=== PATIENT | female | born 1970 | race Caucasian/White ===

== ENCOUNTER 2022-02-25 12:58 | Inpatient (IN) ==
[2022-02-25] MEDS ORDERED: IOPAMIDOL 100 ML BOTTLE IV ONE (12:59)
--- NOTE | 2022-02-25 13:09 | Emergency Department Note ---
Weakness HPI <Ezekiel Sutton DAYNA Morris - Last Filed: 02/25/22 18:32> General Chief complaint: Weakness Stated complaint: Weakness Time Seen by Provider: 02/25/22 13:02 Source: patient Mode of arrival: ambulatory Limitations: altered mental status History of Present Illness HPI Narrative: Narrative: Patient is a 51-year-old female with past medical history of restless leg syndrome and uncontrolled type 2 diabetes recently saw her primary care provider on February 19, 2022. Patient has been treated for restless leg syndrome and periodic limb movements with Requip and has recently been prescribed rotigotine (Neupro) 4mg/24 hr patch. Patient was also recently started on Jardiance 25 mg daily after seeing her PCP for management of her diabetes. Patient went to [facility] reporting feeling weak, confused, and disoriented. She recently was started on rotigotine (Neupro) 4 mg / 24-hour patch. After she went to [facility] today she was advised to come to the emergency department for further work-up as she is continuing to be disoriented and confused. Patient's reports that she has not had any fevers, cough, chills, abdominal pain, diarrhea, vomiting, taken any Wing substances or drinks alcohol on a routine basis. He indicates last well known normal was 4 days ago. She slowly started becoming more weak, confused, disoriented over time. Related Data Home Medications Medication Instructions Recorded Confirmed clonazepam 0.5 mg tablet 0.5 mg PO QDAY PRN Anxiety 02/01/22 02/25/22 dapagliflozin 10 mg tablet 1 tab PO QDAY 02/25/22 02/25/22 ([facility]) gabapentin 300 mg capsule 600 mg PO BID@02/25/22 02/25/22 metformin 1,000 mg tablet 1,000 mg PO BIDCC 02/25/22 02/25/22 Previous Rx's Medication Instructions Recorded estradiol 1 mg tablet 1 mg PO QDAY #90 tabs 02/19/22 semaglutide 2 mg/dose (8 mg/3 mL) 2 mg (0.75 mL) subcut QWEEK #3 mL 02/19/22 subcutaneous pen injector venlafaxine 150 mg 150 mg PO QDAY #90 caps 02/19/22 capsule,extended release 24 hr Allergies Allergy/AdvReac Type Severity Reaction Status Date / Time codeine Allergy Mild Unknown Verified 02/25/22 17:50 Review of Systems <DAYNA Marroquin - Last Filed: 02/25/22 18:32> ROS ROS Narrative: Narrative: PFSH <DAYNA Marroquin - Last Filed: 02/25/22 18:32> Narrative Patient History Narrative: Narrative: Medical/Surgical/Family History All Active Problems (Updated 02/25/22 @ 18:28 by DAYNA Marroquin) DKA (diabetic ketoacidosis) (Acute) Metabolic acidosis (Acute) Menopausal and postmenopausal disorder (Chronic) Type 2 diabetes mellitus (Chronic) Restless legs (Chronic) PLMD (periodic limb movement disorder) (Chronic) Medical History (Updated 02/25/22 @ 18:28 by DAYNA Marroquin) Menopausal and postmenopausal disorder PLMD (periodic limb movement disorder) Restless legs Type 2 diabetes mellitus Surgical History History of cholecystectomy History of robot-assisted laparoscopic hysterectomy (~04/2018) History of tubal ligation which was then reversed and repeated in 2015 but had complications during the repeat tubal Family History Family/Other Type 2 diabetes mellitus Social History Smoking Status: Never smoker Alcohol Intake Frequency: does not drink Substance Use: does not use Exam <DAYNA Marroquin - Last Filed: 02/25/22 18:32> Narrative Narrative: Narrative: General Limitations: altered mental status General appearance: Present lethargic Head Head: Present atraumatic, normocephalic and normal inspection Eye Eye: Present normal appearance, PERRL and EOMI; Absent scleral icterus or nystagmus ENT ENT: Present mucous membranes dry Neck Neck: Present normal inspection and full ROM; Absent tenderness, meningismus or lymphadenopathy Chest Chest: Present normal inspection, symmetric chest wall rise and tenderness Respiratory Respiratory: Present normal lung sounds bilaterally; Absent respiratory distress, rales/crackles, wheezes, stridor, accessory muscle use or prolonged expiratory phase Cardiovascular Cardiovascular: Present regular rate, normal rhythm and normal heart sounds; Absent systolic murmur or diastolic murmur Adbominal Abdominal: Present soft, tenderness (Moderate diffuse abdominal tenderness with palpation.) and normal bowel sounds; Absent distention Extremities Extremities: Present normal inspection, full ROM and normal capillary refill; Absent pedal edema or pretibial edema Back Back: Present normal inspection Expanded Neurological Patient oriented to: Absent person, place or time Speech: Present slurred CRANIAL NERVES: EOM function (II, III, IV, ): Normal, facial sensation (V): Normal, facial palsy (VII): Normal, gag reflex (IX): Normal, spinal accessory function (XI): Normal and tongue deviation (XII): Normal Motor strength - LUE: 4/5 Motor strength - RUE: 4/5 Motor strength - LLE: 4/5 Motor strength - RLE: 4/5 SENSORY EXAM UPPER EXTREMITY: Normal: light touch SENSORY EXAM LOWER EXTREMITY: Normal: light touch Coma Scale Eye Opening: To Voice Coma Scale Motor Response: Obeys Commands Coma Scale Verbal Response: Confused Coma Scale Total: 13 Skin Skin: Present warm (WNL), dry and normal color <Elijah Gallagher DO - Last Filed: 02/25/22 18:37> Expanded Neurological Coma Scale Total: 13 Course <DAYNA Marroquin - Last Filed: 02/25/22 18:32> Vital Signs Vital signs: Vital Signs Temperature 36.5 C 02/25/22 12:58 Pulse Rate 113 H 02/25/22 12:58 Respiratory Rate 18 02/25/22 12:58 Blood Pressure 151/89 02/25/22 12:58 Pulse Oximetry (%) 99 02/25/22 12:58 Oxygen Delivery Method 02/25/22 12:58 Temperature 36.5 C 02/25/22 12:58 Pulse Rate 89 02/25/22 18:16 Respiratory Rate 19 02/25/22 18:16 Blood Pressure 95/56 02/25/22 18:00 Pulse Oximetry (%) 98 02/25/22 18:16 Oxygen Delivery Method 02/25/22 18:00 <Elijah Gallagher DO - Last Filed: 02/25/22 18:37> Vital Signs Vital signs: Vital Signs Temperature 36.5 C 02/25/22 12:58 Pulse Rate 113 H 02/25/22 12:58 Respiratory Rate 18 02/25/22 12:58 Blood Pressure 151/89 02/25/22 12:58 Pulse Oximetry (%) 99 02/25/22 12:58 Oxygen Delivery Method 02/25/22 12:58 Temperature 36.5 C 02/25/22 12:58 Pulse Rate 89 02/25/22 18:16 Respiratory Rate 19 02/25/22 18:16 Blood Pressure 95/56 02/25/22 18:00 Pulse Oximetry (%) 98 02/25/22 18:16 Oxygen Delivery Method 02/25/22 18:00 [facility] <Ezekiel MorrisDAYNA - Last Filed: 02/25/22 18:32> [facility] Narrative Medical decision making narrative: Narrative: Patient is a 51-year-old female who came into the emergency department today with altered mental status after being seen at the urgent care and was advised to go to the emergency department. Began work-up with the patient today including labs, 1 view chest x-ray, Noncontrast head CT, and did order a CT abdomen pelvis with contrast given the altered mental status and her abdominal pain she was experiencing. Patient's chest x-ray today is normal. Noncontrast head CT is read by radiologist as normal. Patient had recently started a new medication for re stless legs rotigotine (Neupro) and the patch was removed today. Poison Control Center was contacted and they recommended to have the patch removed and half- life is 5 to 7 hours with most improvement showing improvement with the sedation effect after 10 to 12 hours. 4 mg dose is higher end of dosing and typically patients are started at 1 mg dose of the medication and slowly increased with the dose. The VBG shows metabolic acidosis. She has normal blood sugar level with high ketones and had recently started on SGLT2 inhibitor 6 days ago. Clinical impression of euglycemic diabetic ketoacidosis which can occur with the utilizing SGLT2 inhibitor medications. Patient was given 1 L fluid bolus upon arrival to the emergency department and a second IV was administered and started a second liter NS bolus. Patient received a noncontrast head CT today and this is normal. Patient sodium 136, glucose 195, anion gap is 20. CO2 is 9.0, potassium 5.4, magnesium 2.6, ammonia 21, [id number] troponin is negative. Alcohol negative today. Patient is receiving IV fluids and proceeded with albuterol SVN for the hyperkalemia. Patient was seen by myself as well as along with Dr. Melara today. Patient's work-up today is consistent with euglycemic DKA most likely related to starting the SGLT2 inhibitor. Insulin drip was started as well as infusion of D5 IV. Dr. Melara was able to speak with hospitalist today, Dr. Weeks at [facility]. He agrees to accept patient for hospital admission for the severe metabolic acidosis likely secondary to DKA after starting SGLT2 inh ibitor. Lab Data Result diagrams: 02/25/22 13:24 02/25/22 13:24 Labs: Lab Results 02/25/22 02/25/22 02/25/22 Range/Units 13:24 13:24 13:24 WBC 10.6 (4.5-11.0) K/mcL RBC 5.82 H (3.59-5.38) M/mcL Hgb 17.6 H (11.2-15.7) g/dL Hct 54.5 H (34.1-44.9) % POC Hct (36-48) MCV 93.6 (80.0-100.0) fL MCH 30.2 (26.0-34.0) pg MCHC 32.3 (31.0-36.0) g/dL RDW 12.3 (11.5-14.5) % Plt Count 289 (140-440) K/mcL MPV 10.4 (8.8-12.5) fL Immature Gran % (Auto) 2.5 H (0.0-0.5) % Neut % (Auto) 83.8 H (38.0-78.0) % Lymph % (Auto) 10.4 L (15.5-49.0) % Hale % (Auto) 3.0 (1.0-12.0) % Eos % (Auto) 0 (0.0-7.0) % Baso % (Auto) 0.3 (0.0-2.0) % Lymph # (Auto) 1.10 L (1.50-4.80) K/mcL Hale # (Auto) 0.32 (0.10-0.90) K/mcL Eos # (Auto) 0 (0.00-0.70) K/mcL Baso # (Auto) 0.03 (0.00-0.30) K/mcL Immature Gran # 0.27 H (0.00-0.05) K/mcl Absolute Neutrophils 8.89 H (1.80-8.00) K/mcL POC VBG pH (7.32-7.42) POC VBG pCO2 at Temp (41-51) POC VBG pO2 (25-40) POC VBG HCO3 (24-28) POC VBG Total CO2 (25-29) POC Venous O2 Sat (40-70) POC VBG Base Excess (-2-2) VBG Lactic Acid (0.5-2) POC Sodium (133-145) Sodium (133-145) mmol/L POC Potassium (3.3-5.1) Potassium (3.3-5.1) mmol/L POC Chloride (96-108) Chloride (96-108) mmol/L Carbon Dioxide (22-30) mmol/L POC Total CO2 (22-30) Anion Gap (8.0-16.0) POC BUN (6-20) BUN (6-20) mg/dL Creatinine (0.6-1.1) mg/dL POC Creatinine (0.6-1.2) GFR Calculation Glucose (70-105) mg/dL POC Glucose (70-105) Osmolality (280-300) mOSM/kg Calcium (8.6-10.4) mg/dL POC WB Ioniz Calcium (1.16-1.32) Magnesium (1.6-2.5) mg/dL Total Bilirubin (0.1-1.0) mg/dL AST (<32) U/L ALT (<40) U/L Alkaline Phosphatase (39-117) U/L Ammonia 21 (11-51) umol/L Total Protein (5.9-8.4) gm/dL Albumin (3.2-5.2) gm/dL Globulin (2.2-3.7) gm/dL Albumin/Globulin Ratio (1.0-2.3) Beta-Hydroxybutyrate (<0.27) mmol/L Salicylates mg/dL Urine Opiates Screen Ur Opiates Confirm Ur Oxycodone Screen U Oxycod/Oxymor Confirm Urine Methadone Screen Ur Methadone Confirm Acetaminophen ug/mL Ur Barbiturates Screen Ur Barbiturate Confirm Ur Phencyclidine Scrn Urine PCP Confirm Ur Amphetamines Screen U Amphetamines Confirm U Benzodiazepines Scrn Ur Benzodiazepine, Qnt Urine Cocaine Screen Urine Cocaine Confirm U Marijuana (THC) Screen Ethyl Alcohol mg/dL < 10.0 mg/dL Ethyl Alcohol g/dL < 0.010 (<0.010) gm/dL POC Troponin I (0.00-0.08) 02/25/22 02/25/22 02/25/22 Range/Units 13:24 13:24 13:24 WBC (4.5-11.0) K/mcL RBC (3.59-5.38) M/mcL Hgb (11.2-15.7) g/dL Hct (34.1-44.9) % POC Hct (36-48) MCV (80.0-100.0) fL MCH (26.0-34.0) pg MCHC (31.0-36.0) g/dL RDW (11.5-14.5) % Plt Count (140-440) K/mcL MPV (8.8-12.5) fL Immature Gran % (Auto) (0.0-0.5) % Neut % (Auto) (38.0-78.0) % Lymph % (Auto) (15.5-49.0) % Hale % (Auto) (1.0-12.0) % Eos % (Auto) (0.0-7.0) % Baso % (Auto) (0.0-2.0) % Lymph # (Auto) (1.50-4.80) K/mcL Hale # (Auto) (0.10-0.90) K/mcL Eos # (Auto) (0.00-0.70) K/mcL Baso # (Auto) (0.00-0.30) K/mcL Immature Gran # (0.00-0.05) K/mcl Absolute Neutrophils (1.80-8.00) K/mcL POC VBG pH (7.32-7.42) POC VBG pCO2 at Temp (41-51) POC VBG pO2 (25-40) POC VBG HCO3 (24-28) POC VBG Total CO2 (25-29) POC Venous O2 Sat (40-70) POC VBG Base Excess (-2-2) VBG Lactic Acid (0.5-2) POC Sodium (133-145) Sodium 134 (133-145) mmol/L POC Potassium (3.3-5.1) Potassium 5.7 H (3.3-5.1) mmol/L POC Chloride (96-108) Chloride 98 (96-108) mmol/L Carbon Dioxide 4 L* (22-30) mmol/L POC Total CO2 (22-30) Anion Gap 32.0 H (8.0-16.0) POC BUN (6-20) BUN 18 (6-20) mg/dL Creatinine 1.2 H (0.6-1.1) mg/dL POC Creatinine (0.6-1.2) GFR Calculation 52 Glucose 197 H (70-105) mg/dL POC Glucose (70-105) Osmolality 311 H (280-300) mOSM/kg Calcium 10.1 (8.6-10.4) mg/dL POC WB Ioniz Calcium (1.16-1.32) Magnesium (1.6-2.5) mg/dL Total Bilirubin 0.2 (0.1-1.0) mg/dL AST 52 H (<32) U/L ALT 71 H (<40) U/L Alkaline Phosphatase 130 H (39-117) U/L Ammonia (11-51) umol/L Total Protein 8.0 (5.9-8.4) gm/dL Albumin 5.3 H (3.2-5.2) gm/dL Globulin 2.7 (2.2-3.7) gm/dL Albumin/Globulin Ratio 2.0 (1.0-2.3) Beta-Hydroxybutyrate 7.92 H (<0.27) mmol/L Salicylates < 0.3 mg/dL Urine Opiates Screen Ur Opiates Confirm Ur Oxycodone Screen U Oxycod/Oxymor Confirm Urine Methadone Screen Ur Methadone Confirm Acetaminophen < 5.0 ug/mL Ur Barbiturates Screen Ur Barbiturate Confirm Ur Phencyclidine Scrn Urine PCP Confirm Ur Amphetamines Screen U Amphetamines Confirm U Benzodiazepines Scrn Ur Benzodiazepine, Qnt Urine Cocaine Screen Urine Cocaine Confirm U Marijuana (THC) Screen Ethyl Alcohol mg/dL mg/dL Ethyl Alcohol g/dL (<0.010) gm/dL POC Troponin I (0.00-0.08) 02/25/22 02/25/22 02/25/22 Range/Units 13:25 13:31 13:34 WBC (4.5-11.0) K/mcL RBC (3.59-5.38) M/mcL Hgb (11.2-15.7) g/dL Hct (34.1-44.9) % POC Hct 57.0 H (36-48) MCV (80.0-100.0) fL MCH (26.0-34.0) pg MCHC (31.0-36.0) g/dL RDW (11.5-14.5) % Plt Count (140-440) K/mcL MPV (8.8-12.5) fL Immature Gran % (Auto) (0.0-0.5) % Neut % (Auto) (38.0-78.0) % Lymph % (Auto) (15.5-49.0) % Hale % (Auto) (1.0-12.0) % Eos % (Auto) (0.0-7.0) % Baso % (Auto) (0.0-2.0) % Lymph # (Auto) (1.50-4.80) K/mcL Hale # (Auto) (0.10-0.90) K/mcL Eos # (Auto) (0.00-0.70) K/mcL Baso # (Auto) (0.00-0.30) K/mcL Immature Gran # (0.00-0.05) K/mcl Absolute Neutrophils (1.80-8.00) K/mcL POC VBG pH 7.02 L* (7.32-7.42) POC VBG pCO2 at Temp 24.0 L (41-51) POC VBG pO2 32 (25-40) POC VBG HCO3 6.2 L* (24-28) POC VBG Total CO2 7.0 L (25-29) POC Venous O2 Sat 38.0 L (40-70) POC VBG Base Excess -25.0 L (-2-2) VBG Lactic Acid 2.1 H (0.5-2) POC Sodium 136 (133-145) Sodium (133-145) mmol/L POC Potassium 5.4 H (3.3-5.1) Potassium (3.3-5.1) mmol/L POC Chloride 113 H (96-108) Chloride (96-108) mmol/L Carbon Dioxide (22-30) mmol/L POC Total CO2 9.0 L* (22-30) Anion Gap (8.0-16.0) POC BUN 21 H (6-20) BUN (6-20) mg/dL Creatinine (0.6-1.1) mg/dL POC Creatinine 0.8 (0.6-1.2) GFR Calculation Glucose (70-105) mg/dL POC Glucose 195 H (70-105) Osmolality (280-300) mOSM/kg Calcium (8.6-10.4) mg/dL POC WB Ioniz Calcium 1.30 (1.16-1.32) Magnesium 2.6 H (1.6-2.5) mg/dL Total Bilirubin (0.1-1.0) mg/dL AST (<32) U/L ALT (<40) U/L Alkaline Phosphatase (39-117) U/L Ammonia (11-51) umol/L Total Protein (5.9-8.4) gm/dL Albumin (3.2-5.2) gm/dL Globulin (2.2-3.7) gm/dL Albumin/Globulin Ratio (1.0-2.3) Beta-Hydroxybutyrate (<0.27) mmol/L Salicylates mg/dL Urine Opiates Screen Ur Opiates Confirm Ur Oxycodone Screen U Oxycod/Oxymor Confirm Urine Methadone Screen Ur Methadone Confirm Acetaminophen ug/mL Ur Barbiturates Screen Ur Barbiturate Confirm Ur Phencyclidine Scrn Urine PCP Confirm Ur Amphetamines Screen U Amphetamines Confirm U Benzodiazepines Scrn Ur Benzodiazepine, Qnt Urine Cocaine Screen Urine Cocaine Confirm U Marijuana (THC) Screen Ethyl Alcohol mg/dL mg/dL Ethyl Alcohol g/dL (<0.010) gm/dL POC Troponin I (0.00-0.08) 02/25/22 02/25/22 02/25/22 Range/Units 13:36 15:53 17:09 WBC (4.5-11.0) K/mcL RBC (3.59-5.38) M/mcL Hgb (11.2-15.7) g/dL Hct (34.1-44.9) % POC Hct (36-48) MCV (80.0-100.0) fL MCH (26.0-34.0) pg MCHC (31.0-36.0) g/dL RDW (11.5-14.5) % Plt Count (140-440) K/mcL MPV (8.8-12.5) fL Immature Gran % (Auto) (0.0-0.5) % Neut % (Auto) (38.0-78.0) % Lymph % (Auto) (15.5-49.0) % Hale % (Auto) (1.0-12.0) % Eos % (Auto) (0.0-7.0) % Baso % (Auto) (0.0-2.0) % Lymph # (Auto) (1.50-4.80) K/mcL Hale # (Auto) (0.10-0.90) K/mcL Eos # (Auto) (0.00-0.70) K/mcL Baso # (Auto) (0.00-0.30) K/mcL Immature Gran # (0.00-0.05) K/mcl Absolute Neutrophils (1.80-8.00) K/mcL POC VBG pH (7.32-7.42) POC VBG pCO2 at Temp (41-51) POC VBG pO2 (25-40) POC VBG HCO3 (24-28) POC VBG Total CO2 (25-29) POC Venous O2 Sat (40-70) POC VBG Base Excess (-2-2) VBG Lactic Acid 2.2 H (0.5-2) POC Sodium (133-145) Sodium (133-145) mmol/L POC Potassium (3.3-5.1) Potassium (3.3-5.1) mmol/L POC Chloride (96-108) Chloride (96-108) mmol/L Carbon Dioxide (22-30) mmol/L POC Total CO2 (22-30) Anion Gap (8.0-16.0) POC BUN (6-20) BUN (6-20) mg/dL Creatinine (0.6-1.1) mg/dL POC Creatinine (0.6-1.2) GFR Calculation Glucose (70-105) mg/dL POC Glucose (70-105) Osmolality (280-300) mOSM/kg Calcium (8.6-10.4) mg/dL POC WB Ioniz Calcium (1.16-1.32) Magnesium (1.6-2.5) mg/dL Total Bilirubin (0.1-1.0) mg/dL AST (<32) U/L ALT (<40) U/L Alkaline Phosphatase (39-117) U/L Ammonia (11-51) umol/L Total Protein (5.9-8.4) gm/dL Albumin (3.2-5.2) gm/dL Globulin (2.2-3.7) gm/dL Albumin/Globulin Ratio (1.0-2.3) Beta-Hydroxybutyrate (<0.27) mmol/L Salicylates mg/dL Urine Opiates Screen None detected Ur Opiates Confirm TNP Ur Oxycodone Screen None detected U Oxycod/Oxymor Confirm TNP Urine Methadone Screen None detected Ur Methadone Confirm TNP Acetaminophen ug/mL Ur Barbiturates Screen None detected Ur Barbiturate Confirm TNP Ur Phencyclidine Scrn None detected Urine PCP Confirm TNP Ur Amphetamines Screen None detected U Amphetamines Confirm TNP U Benzodiazepines Scrn None detected Ur Benzodiazepine, Qnt TNP Urine Cocaine Screen None detected Urine Cocaine Confirm TNP U Marijuana (THC) Screen Suspect positive A Ethyl Alcohol mg/dL mg/dL Ethyl Alcohol g/dL (<0.010) gm/dL POC Troponin I < 0.02 (0.00-0.08) Radiology Data Radiology results reviewed: Yes I reviewed the patient's radiology results. Radiology results narrative: Ordering Physician:Ezekiel Morris Date of Service:02/25/22 Procedure(s):CT head/brain wo [facility] CLINICAL INFORMATION: Weakness and disorientation COMPARISON: None. TECHNIQUE: 2.5 mm helical slices were obtained in the skull base to vertex. Following reconstruction, axial reformatted images were reviewed at bone and parenchymal windows. The exam was performed using radiation dose optimization techniques including, but not limited to, automated exposure control, adjustment of the mA and/or kV according to patient size and use of iterative reconstruction technique. FINDINGS: The ventricles, sulci, fissures, and cisterns are normal in size and configuration. No extra-axial fluid collections are identified. The cerebrum, brainstem and cerebellum are unremarkable. There is no evidence of hemorrhage, mass effect, or edema. Bone windows show no osseous abnormality. IMPRESSION: Normal head CT without contrast. Interpreted and Authenticated by: Travon Collier 02/25/22 Ordering Physician:Ezekiel Morris Date of Service:02/25/22 Procedure(s):CT abdomen pelvis w con CLINICAL INFORMATION: Abdominal pain COMPARISON: None. TECHNIQUE: Following enteric contrast, 80 cc of Isovue-370 were injected intravenously, and 60 seconds later, 0.625 mm helical slices were obtained from the mid heart through the subtrochanteric regions. Following reconstruction, 2.5 mm sagittal, coronal and axial reformatted images were processed and reviewed at bone, lung and soft tissue windows. Five minutes later, 0.625 mm helical slices were obtained from the mid heart through the kidneys and viewed at soft tissue windows.The exam was performed using radiation dose optimization techniques including, but not limited to, automated exposure control, adjustment of the mA and/or kV according to patient size and use of iterative reconstruction technique. FINDINGS: The lung bases are clear. No effusions. The visualized heart is grossly normal. Abdominal images show moderate fatty change within the liver without focal hepatic lesion. The gallbladder is surgically absent. The common bile duct is mildly dilated-8 mm with smooth tapering near the ampullary region. Pancreatic duct is also mildly dilated with smooth tapering near the ampullary region. Findings are compatible with post cholecystectomy state. Pancreatic parenchyma is normal. Both kidneys, adrenal glands, spleen and aorta including aortic branches are normal in size configuration and attenuation without focal lesion. There is no free air, free fluid or adenopathy Pelvic images show hysterectomy/ oophorectomy changes. Urinary bladder is normal. Multiple sigmoid diverticula appreciated but no evidence of diverticulitis. The remaining colon, medial pericecal appendix, small bowel are unremarkable. There is mild mucosal enhancement of the gastric antrum and pylorus which could indicate mild gastritis. Bone windows show no osseous abnormality. IMPRESSION: Mild mucosal enhancement of the distal gastric antrum pylorus which is suggestive, but not diagnostic, of gastritis. Sigmoid diverticulosis, but no evidence of diverticulitis. Moderate fatty change within the liver. Interpreted and Authenticated by: Travon Collier 02/25/22 <Elijah Gallagher DO - Last Filed: 02/25/22 18:37> Lab Data Labs: Lab Results 02/25/22 02/25/22 02/25/22 Range/Units 13:24 13:24 13:24 WBC 10.6 (4.5-11.0) K/mcL RBC 5.82 H (3.59-5.38) M/mcL Hgb 17.6 H (11.2-15.7) g/dL Hct 54.5 H (34.1-44.9) % POC Hct (36-48) MCV 93.6 (80.0-100.0) fL MCH 30.2 (26.0-34.0) pg MCHC 32.3 (31.0-36.0) g/dL RDW 12.3 (11.5-14.5) % Plt Count 289 (140-440) K/mcL MPV 10.4 (8.8-12.5) fL Immature Gran % (Auto) 2.5 H (0.0-0.5) % Neut % (Auto) 83.8 H (38.0-78.0) % Lymph % (Auto) 10.4 L (15.5-49.0) % Hale % (Auto) 3.0 (1.0-12.0) % Eos % (Auto) 0 (0.0-7.0) % Baso % (Auto) 0.3 (0.0-2.0) % Lymph # (Auto) 1.10 L (1.50-4.80) K/mcL Hale # (Auto) 0.32 (0.10-0.90) K/mcL Eos # (Auto) 0 (0.00-0.70) K/mcL Baso # (Auto) 0.03 (0.00-0.30) K/mcL Immature Gran # 0.27 H (0.00-0.05) K/mcl Absolute Neutrophils 8.89 H (1.80-8.00) K/mcL POC VBG pH (7.32-7.42) POC VBG pCO2 at Temp (41-51) POC VBG pO2 (25-40) POC VBG HCO3 (24-28) POC VBG Total CO2 (25-29) POC Venous O2 Sat (40-70) POC VBG Base Excess (-2-2) VBG Lactic Acid (0.5-2) POC Sodium (133-145) Sodium (133-145) mmol/L POC Potassium (3.3-5.1) Potassium (3.3-5.1) mmol/L POC Chloride (96-108) Chloride (96-108) mmol/L Carbon Dioxide (22-30) mmol/L POC Total CO2 (22-30) Anion Gap (8.0-16.0) POC BUN (6-20) BUN (6-20) mg/dL Creatinine (0.6-1.1) mg/dL POC Creatinine (0.6-1.2) GFR Calculation Glucose (70-105) mg/dL POC Glucose (70-105) Osmolality (280-300) mOSM/kg Calcium (8.6-10.4) mg/dL POC WB Ioniz Calcium (1.16-1.32) Magnesium (1.6-2.5) mg/dL Total Bilirubin (0.1-1.0) mg/dL AST (<32) U/L ALT (<40) U/L Alkaline Phosphatase (39-117) U/L Ammonia 21 (11-51) umol/L Total Protein (5.9-8.4) gm/dL Albumin (3.2-5.2) gm/dL Globulin (2.2-3.7) gm/dL Albumin/Globulin Ratio (1.0-2.3) Beta-Hydroxybutyrate (<0.27) mmol/L Salicylates mg/dL Urine Opiates Screen Ur Opiates Confirm Ur Oxycodone Screen U Oxycod/Oxymor Confirm Urine Methadone Screen Ur Methadone Confirm Acetaminophen ug/mL Ur Barbiturates Screen Ur Barbiturate Confirm Ur Phencyclidine Scrn Urine PCP Confirm Ur Amphetamines Screen U Amphetamines Confirm U Benzodiazepines Scrn Ur Benzodiazepine, Qnt Urine Cocaine Screen Urine Cocaine Confirm U Marijuana (THC) Screen Ethyl Alcohol mg/dL < 10.0 mg/dL Ethyl Alcohol g/dL < 0.010 (<0.010) gm/dL POC Troponin I (0.00-0.08) 02/25/22 02/25/22 02/25/22 Range/Units 13:24 13:24 13:24 WBC (4.5-11.0) K/mcL RBC (3.59-5.38) M/mcL Hgb (11.2-15.7) g/dL Hct (34.1-44.9) % POC Hct (36-48) MCV (80.0-100.0) fL MCH (26.0-34.0) pg MCHC (31.0-36.0) g/dL RDW (11.5-14.5) % Plt Count (140-440) K/mcL MPV (8.8-12.5) fL Immature Gran % (Auto) (0.0-0.5) % Neut % (Auto) (38.0-78.0) % Lymph % (Auto) (15.5-49.0) % Hale % (Auto) (1.0-12.0) % Eos % (Auto) (0.0-7.0) % Baso % (Auto) (0.0-2.0) % Lymph # (Auto) (1.50-4.80) K/mcL Hale # (Auto) (0.10-0.90) K/mcL Eos # (Auto) (0.00-0.70) K/mcL Baso # (Auto) (0.00-0.30) K/mcL Immature Gran # (0.00-0.05) K/mcl Absolute Neutrophils (1.80-8.00) K/mcL POC VBG pH (7.32-7.42) POC VBG pCO2 at Temp (41-51) POC VBG pO2 (25-40) POC VBG HCO3 (24-28) POC VBG Total CO2 (25-29) POC Venous O2 Sat (40-70) POC VBG Base Excess (-2-2) VBG Lactic Acid (0.5-2) POC Sodium (133-145) Sodium 134 (133-145) mmol/L POC Potassium (3.3-5.1) Potassium 5.7 H (3.3-5.1) mmol/L POC Chloride (96-108) Chloride 98 (96-108) mmol/L Carbon Dioxide 4 L* (22-30) mmol/L POC Total CO2 (22-30) Anion Gap 32.0 H (8.0-16.0) POC BUN (6-20) BUN 18 (6-20) mg/dL Creatinine 1.2 H (0.6-1.1) mg/dL POC Creatinine (0.6-1.2) GFR Calculation 52 Glucose 197 H (70-105) mg/dL POC Glucose (70-105) Osmolality 311 H (280-300) mOSM/kg Calcium 10.1 (8.6-10.4) mg/dL POC WB Ioniz Calcium (1.16-1.32) Magnesium (1.6-2.5) mg/dL Total Bilirubin 0.2 (0.1-1.0) mg/dL AST 52 H (<32) U/L ALT 71 H (<40) U/L Alkaline Phosphatase 130 H (39-117) U/L Ammonia (11-51) umol/L Total Protein 8.0 (5.9-8.4) gm/dL Albumin 5.3 H (3.2-5.2) gm/dL Globulin 2.7 (2.2-3.7) gm/dL Albumin/Globulin Ratio 2.0 (1.0-2.3) Beta-Hydroxybutyrate 7.92 H (<0.27) mmol/L Salicylates < 0.3 mg/dL Urine Opiates Screen Ur Opiates Confirm Ur Oxycodone Screen U Oxycod/Oxymor Confirm Urine Methadone Screen Ur Methadone Confirm Acetaminophen < 5.0 ug/mL Ur Barbiturates Screen Ur Barbiturate Confirm Ur Phencyclidine Scrn Urine PCP Confirm Ur Amphetamines Screen U Amphetamines Confirm U Benzodiazepines Scrn Ur Benzodiazepine, Qnt Urine Cocaine Screen Urine Cocaine Confirm U Marijuana (THC) Screen Ethyl Alcohol mg/dL mg/dL Ethyl Alcohol g/dL (<0.010) gm/dL POC Troponin I (0.00-0.08) 02/25/22 02/25/22 02/25/22 Range/Units 13:25 13:31 13:34 WBC (4.5-11.0) K/mcL RBC (3.59-5.38) M/mcL Hgb (11.2-15.7) g/dL Hct (34.1-44.9) % POC Hct 57.0 H (36-48) MCV (80.0-100.0) fL MCH (26.0-34.0) pg MCHC (31.0-36.0) g/dL RDW (11.5-14.5) % Plt Count (140-440) K/mcL MPV (8.8-12.5) fL Immature Gran % (Auto) (0.0-0.5) % Neut % (Auto) (38.0-78.0) % Lymph % (Auto) (15.5-49.0) % [place] % (Auto) (1.0-12.0) % Eos % (Auto) (0.0-7.0) % Baso % (Auto) (0.0-2.0) % Lymph # (Auto) (1.50-4.80) K/mcL [place] # (Auto) (0.10-0.90) K/mcL Eos # (Auto) (0.00-0.70) K/mcL Baso # (Auto) (0.00-0.30) K/mcL Immature Gran # (0.00-0.05) K/mcl Absolute Neutrophils (1.80-8.00) K/mcL POC VBG pH 7.02 L* (7.32-7.42) POC VBG pCO2 at Temp 24.0 L (41-51) POC VBG pO2 32 (25-40) POC VBG HCO3 6.2 L* (24-28) POC VBG Total CO2 7.0 L (25-29) POC Venous O2 Sat 38.0 L (40-70) POC VBG Base Excess -25.0 L (-2-2) VBG Lactic Acid 2.1 H (0.5-2) POC Sodium 136 (133-145) Sodium (133-145) mmol/L POC Potassium 5.4 H (3.3-5.1) Potassium (3.3-5.1) mmol/L POC Chloride 113 H (96-108) Chloride (96-108) mmol/L Carbon Dioxide (22-30) mmol/L POC Total CO2 9.0 L* (22-30) Anion Gap (8.0-16.0) POC BUN 21 H (6-20) BUN (6-20) mg/dL Creatinine (0.6-1.1) mg/dL POC Creatinine 0.8 (0.6-1.2) GFR Calculation Glucose (70-105) mg/dL POC Glucose 195 H (70-105) Osmolality (280-300) mOSM/kg Calcium (8.6-10.4) mg/dL POC WB Ioniz Calcium 1.30 (1.16-1.32) Magnesium 2.6 H (1.6-2.5) mg/dL Total Bilirubin (0.1-1.0) mg/dL AST (<32) U/L ALT (<40) U/L Alkaline Phosphatase (39-117) U/L Ammonia (11-51) umol/L Total Protein (5.9-8.4) gm/dL Albumin (3.2-5.2) gm/dL Globulin (2.2-3.7) gm/dL Albumin/Globulin Ratio (1.0-2.3) Beta-Hydroxybutyrate (<0.27) mmol/L Salicylates mg/dL Urine Opiates Screen Ur Opiates Confirm Ur Oxycodone Screen U Oxycod/Oxymor Confirm Urine Methadone Screen Ur Methadone Confirm Acetaminophen ug/mL Ur Barbiturates Screen Ur Barbiturate Confirm Ur Phencyclidine Scrn Urine PCP Confirm Ur Amphetamines Screen U Amphetamines Confirm U Benzodiazepines Scrn Ur Benzodiazepine, Qnt Urine Cocaine Screen Urine Cocaine Confirm U Marijuana (THC) Screen Ethyl Alcohol mg/dL mg/dL Ethyl Alcohol g/dL (<0.010) gm/dL POC Troponin I (0.00-0.08) 02/25/22 02/25/22 02/25/22 Range/Units 13:36 15:53 17:09 WBC (4.5-11.0) K/mcL RBC (3.59-5.38) M/mcL Hgb (11.2-15.7) g/dL Hct (34.1-44.9) % POC Hct (36-48) MCV (80.0-100.0) fL MCH (26.0-34.0) pg MCHC (31.0-36.0) g/dL RDW (11.5-14.5) % Plt Count (140-440) K/mcL MPV (8.8-12.5) fL Immature Gran % (Auto) (0.0-0.5) % Neut % (Auto) (38.0-78.0) % Lymph % (Auto) (15.5-49.0) % [place] % (Auto) (1.0-12.0) % Eos % (Auto) (0.0-7.0) % Baso % (Auto) (0.0-2.0) % Lymph # (Auto) (1.50-4.80) K/mcL [place] # (Auto) (0.10-0.90) K/mcL Eos # (Auto) (0.00-0.70) K/mcL Baso # (Auto) (0.00-0.30) K/mcL Immature Gran # (0.00-0.05) K/mcl Absolute Neutrophils (1.80-8.00) K/mcL POC VBG pH (7.32-7.42) POC VBG pCO2 at Temp (41-51) POC VBG pO2 (25-40) POC VBG HCO3 (24-28) POC VBG Total CO2 (25-29) POC Venous O2 Sat (40-70) POC VBG Base Excess (-2-2) VBG Lactic Acid 2.2 H (0.5-2) POC Sodium (133-145) Sodium (133-145) mmol/L POC Potassium (3.3-5.1) Potassium (3.3-5.1) mmol/L POC Chloride (96-108) Chloride (96-108) mmol/L Carbon Dioxide (22-30) mmol/L POC Total CO2 (22-30) Anion Gap (8.0-16.0) POC BUN (6-20) BUN (6-20) mg/dL Creatinine (0.6-1.1) mg/dL POC Creatinine (0.6-1.2) GFR Calculation Glucose (70-105) mg/dL POC Glucose (70-105) Osmolality (280-300) mOSM/kg Calcium (8.6-10.4) mg/dL POC WB Ioniz Calcium (1.16-1.32) Magnesium (1.6-2.5) mg/dL Total Bilirubin (0.1-1.0) mg/dL AST (<32) U/L ALT (<40) U/L Alkaline Phosphatase (39-117) U/L Ammonia (11-51) umol/L Total Protein (5.9-8.4) gm/dL Albumin (3.2-5.2) gm/dL Globulin (2.2-3.7) gm/dL Albumin/Globulin Ratio (1.0-2.3) Beta-Hydroxybutyrate (<0.27) mmol/L Salicylates mg/dL Urine Opiates Screen None detected Ur Opiates Confirm TNP Ur Oxycodone Screen None detected U Oxycod/Oxymor Confirm TNP Urine Methadone Screen None detected Ur Methadone Confirm TNP Acetaminophen ug/mL Ur Barbiturates Screen None detected Ur Barbiturate Confirm TNP Ur Phencyclidine Scrn None detected Urine PCP Confirm TNP Ur Amphetamines Screen None detected U Amphetamines Confirm TNP U Benzodiazepines Scrn None detected Ur Benzodiazepine, Qnt TNP Urine Cocaine Screen None detected Urine Cocaine Confirm TNP U Marijuana (THC) Screen Suspect positive A Ethyl Alcohol mg/dL mg/dL Ethyl Alcohol g/dL (<0.010) gm/dL POC Troponin I < 0.02 (0.00-0.08) Discharge Plan Patient/Caregiver Discharge Instructions Pt seen by ATTORNEY RECRUITER/PA only: No Clinical Impression: Metabolic acidosis DKA (diabetic ketoacidosis) Qualifiers: Diabetes mellitus type: drug or chemical induced Diabetes mellitus complication detail: without coma Qualified Code(s): E09.10 - Drug or chemical induced diabetes mellitus with ketoacidosis without coma Patient Disposition: Xfer As Inpt ([facility]) Discharge Date/Time: 02/25/22 17:15
[2022-02-25] MEDS ORDERED: 0.9 % SODIUM CHLORIDE 1,000 ML IV SCH (13:15)
[2022-02-25 13:49] LABS: POC Calcium, Ionized 1.3 (1.16-1.32); POC Creatinine 0.8 (0.6-1.2); POC Potassium 5.4 (3.3-5.1)
--- NOTE | 2022-02-25 13:58 | Cat Scan Report ---
CLINICAL INFORMATION: Weakness and disorientation COMPARISON: None. TECHNIQUE: 2.5 mm helical slices were obtained in the skull base to vertex. Following reconstruction, axial reformatted images were reviewed at bone and parenchymal windows. The exam was performed using radiation dose optimization techniques including, but not limited to, automated exposure control, adjustment of the mA and/or kV according to patient size and use of iterative reconstruction technique. FINDINGS: The ventricles, sulci, fissures, and cisterns are normal in size and configuration. No extra-axial fluid collections are identified. The cerebrum, brainstem and cerebellum are unremarkable. There is no evidence of hemorrhage, mass effect, or edema. Bone windows show no osseous abnormality. IMPRESSION: Normal head CT without contrast. Interpreted and Authenticated by: Travon Collier 02/25/22
[2022-02-25 14:11] LABS: Basophils # (Auto) 0.03 K/mcL (0.00-0.30); Basophils % (Auto) 0.3 % (0.0-2.0); Eosinophils # (Auto) 0 K/mcL (0.00-0.70); Eosinophils % (Auto) 0 % (0.0-7.0); Hematocrit 54.5 % (34.1-44.9); Hemoglobin 17.6 g/dL (11.2-15.7); Lymphocytes % (Auto) 10.4 % (15.5-49.0); Mean Cell Volume 93.6 fL (80.0-100.0); Mean Corpuscular HGB Conc 32.3 g/dL (31.0-36.0); Mean Platelet Volume 10.4 fL (8.8-12.5); Monocytes # (Auto) 0.32 K/mcL (0.10-0.90); Neutrophils % (Auto) 83.8 % (38.0-78.0); Platelet Count 289 K/mcL (140-440); RBC 5.82 M/mcL (3.59-5.38); Red Cell Distribution Width 12.3 % (11.5-14.5); WBC 10.6 K/mcL (4.5-11.0)
[2022-02-25 14:17] LABS: Alcohol, Blood < 10.0 mg/dL; Alcohol,Blood < 0.010 gm/dL (<0.010)
--- NOTE | 2022-02-25 14:19 | XRay Report ---
CLINICAL INFORMATION: Altered mental status COMPARISON: None. TECHNIQUE: Portable FINDINGS: The heart size, mediastinum and pulmonary vessels are unremarkable. The lungs are clear. There are no effusions. The bones and soft tissues are within normal limits. IMPRESSION: Normal chest. Interpreted and Authenticated by: Travon Collier 02/25/22
[2022-02-25] MEDS ORDERED: ALBUTEROL SULFATE 5 MG/ML NEB SOLUTION BOTTLE NEB ONE (14:20)
[2022-02-25] MEDS ORDERED: DEXTROSE 50% 50 ML VIAL IV ONE (14:36)
[2022-02-25] MEDS ORDERED: INSULIN REGULAR, HUMAN 50 UNIT in 0.9 % SODIUM CHLORIDE 99.5 ML IV SCH ×2 (14:45→17:24)
[2022-02-25] MEDS ORDERED: DEXTROSE 5%-LR 1,000 ML IV SCH (14:45)
[2022-02-25] MEDS ORDERED: 0.9 % SODIUM CHLORIDE 1,000 ML IV ONE ×2 (14:48→18:12)
[2022-02-25] MEDS ORDERED: ALBUTEROL SULFATE 2.5 MG/3 ML NEBULIZER NEB ONE (14:56)
[2022-02-25 14:59] LABS: ALT/SGPT 71 U/L (<40); AST/SGOT 52 U/L (<32); Albumin 5.3 gm/dL (3.2-5.2); Alkaline Phosphatase 130 U/L (39-117); Bilirubin,Total 0.2 mg/dL (0.1-1.0); Blood Urea Nitrogen 18 mg/dL (6-20); Calcium 10.1 mg/dL (8.6-10.4); Carbon Dioxide 4 mmol/L (22-30); Chloride 98 mmol/L (96-108); Globulin 2.7 gm/dL (2.2-3.7); Glomerular Filtration Rate 52; Glucose 197 mg/dL (70-105)
[2022-02-25] MEDS ORDERED: LACTATED RINGERS 1,000 ML IV ONE (15:00)
[2022-02-25 15:07] LABS: Beta Hydroxybutyrate 7.92 mmol/L (<0.27)
[2022-02-25] MEDS ORDERED: DEXTROSE 50% 50 ML SYRINGE IV ONE (15:20)
--- NOTE | 2022-02-25 15:27 | Cat Scan Report ---
CLINICAL INFORMATION: Abdominal pain COMPARISON: None. TECHNIQUE: Following enteric contrast, 80 cc of Isovue-370 were injected intravenously, and 60 seconds later, 0.625 mm helical slices were obtained from the mid heart through the subtrochanteric regions. Following reconstruction, 2.5 mm sagittal, coronal and axial reformatted images were processed and reviewed at bone, lung and soft tissue windows. Five minutes later, 0.625 mm helical slices were obtained from the mid heart through the kidneys and viewed at soft tissue windows.The exam was performed using radiation dose optimization techniques including, but not limited to, automated exposure control, adjustment of the mA and/or kV according to patient size and use of iterative reconstruction technique. FINDINGS: The lung bases are clear. No effusions. The visualized heart is grossly normal. Abdominal images show moderate fatty change within the liver without focal hepatic lesion. The gallbladder is surgically absent. The common bile duct is mildly dilated-8 mm with smooth tapering near the ampullary region. Pancreatic duct is also mildly dilated with smooth tapering near the ampullary region. Findings are compatible with post cholecystectomy state. Pancreatic parenchyma is normal. Both kidneys, adrenal glands, spleen and aorta including aortic branches are normal in size configuration and attenuation without focal lesion. There is no free air, free fluid or adenopathy Pelvic images show hysterectomy/ oophorectomy changes. Urinary bladder is normal. Multiple sigmoid diverticula appreciated but no evidence of diverticulitis. The remaining colon, medial pericecal appendix, small bowel are unremarkable. There is mild mucosal enhancement of the gastric antrum and pylorus which could indicate mild gastritis. Bone windows show no osseous abnormality. IMPRESSION: Mild mucosal enhancement of the distal gastric antrum pylorus which is suggestive, but not diagnostic, of gastritis. Sigmoid diverticulosis, but no evidence of diverticulitis. Moderate fatty change within the liver. Interpreted and Authenticated by: Travon Collier 02/25/22
--- NOTE | 2022-02-25 16:02 | Internal Med History&Physical ---
HPI History of Present Illness Patient information: Note initiated : 02/25/22 at 3:53 pm Service Date, if different from initiated Date: [] Patient: Dea Newman 51 y/o F admitted on for Weakness. Chief Complaint: [] History of present illness: Ms. Newman is a 51 year old female with a history of type 2 diabetes mellitus, restless legs, depression who presented to the patient with generalized weakness, disorientation and generally feeling ill. In the emergency department, the patient was found to have a severe metabolic acidosis with an anion gap and elevated ketones. Alcohol level, aspirin level, Tylenol level were normal. There is no evidence of an infectious process, troponin was normal. The patient recently started Jardiance and that is thought to be the cause of diabetic ketoacidosis. The patient's glucose level was 195 in the ED therefore this is probably euglycemic diabetic ketoacidosis secondary to Jardiance. Work-up was also notable for an elevated hemoglobin, likely hemoconcentration and elevated creatinine likely reflecting a prerenal acute kidney injury. Lactic acid was mildly elevated at 2.1, LFTs were also mildly elevated. Potassium was mildly elevated at 5.4. The patient was started on an insulin infusion and D5 IV. Hospital medicine was consulted for admission. Review of systems Constitutional: Positive for chills and fatigue Eyes: no vision changes or pain Cardiovascular: no chest pain, no palpitations Respiratory: no cough or dyspnea Gastrointestinal: Positive for epigastric abdominal pain, nausea and vomiting Genitourinary: no dysuria or difficulty voiding Musculoskeletal: no arthralgia or myalgia Integumentary: no skin lesion or wound Neurological: no focal weakness or numbness Psychiatric: no anxiety or depression Physical exam Head: Atraumatic, normal inspection. Eyes: normal appearance, no scleral icterus. Neck: full ROM Respiratory: no respiratory distress. Cardiovascular: Regular tachycardia, S1, S2. GI/Abdominal: Mild epigastric tenderness, soft, nontender, no guarding. Extremities: full range of motion, nontender. Neurological: CN II-XII intact, intact motor, intact sensation. Psychiatric: normal mood. Skin: warm, normal color PFSH PFSH All Active Problems (Updated 02/19/22 @ 16:33 by Alvin Gomes PA-C) Menopausal and postmenopausal disorder (Chronic) Type 2 diabetes mellitus (Chronic) Restless legs (Chronic) PLMD (periodic limb movement disorder) (Chronic) Medical History (Updated 02/19/22 @ 16:33 by Alvin Gomes PA-C) Menopausal and postmenopausal disorder PLMD (periodic limb movement disorder) Restless legs Type 2 diabetes mellitus Surgical History History of cholecystectomy History of robot-assisted laparoscopic hysterectomy (~04/2018) History of tubal ligation which was then reversed and repeated in 2015 but had complications during the repeat tubal Family History Family/Other Type 2 diabetes mellitus Social History (Updated 02/19/22 @ 16:17 by Alvin Gomes PA-C) marital status: occupational status: employed frequency: 3-4 times per week smoking status: Never smoker alcohol intake frequency: does not drink substance use type: does not use MEDS/ALLERGIES Home Medications and Allergies Home Medications Medication Instructions Recorded Confirmed Type clonazepam 0.5 mg tablet 0.5 mg PO QDAY 02/01/22 02/19/22 History ropinirole 4 mg tablet,extended 4 mg PO HS 02/01/22 02/19/22 History release 24 hr empagliflozin 25 mg tablet 25 mg PO QAM #90 tabs 02/19/22 02/19/22 Rx estradiol 1 mg tablet 1 mg PO QDAY #90 tabs 02/19/22 02/19/22 Rx semaglutide 2 mg/dose (8 mg/3 mL) 2 mg (0.75 mL) subcut QWEEK #3 mL 02/19/22 02/19/22 Rx subcutaneous pen injector venlafaxine 150 mg 150 mg PO QDAY #90 caps 02/19/22 02/19/22 Rx capsule,extended release 24 hr gabapentin 300 mg capsule 600 mg PO BID@02/25/22 History metformin 1,000 mg tablet 1,000 mg PO BIDCC 02/25/22 History venlafaxine 75 mg capsule,extended 75 mg PO QDAY 02/25/22 History release 24 hr Allergies Allergy/AdvReac Type Severity Reaction Status Date / Time codeine Allergy Unknown Unknown Unverified 02/19/22 14:06 EXAM Constitutional Vitals: Temp Pulse Resp BP Pulse Ox O2 Del Method 97.7 F 113 H 18 151/89 99 02/25/22 12:58 02/25/22 12:58 02/25/22 12:58 02/25/22 12:58 02/25/22 12:58 02/25/22 12:58 DATA Data Completed and Pending Labs: Labs from last 24 hours 02/25/22 02/25/22 02/25/22 13:36 13:34 13:31 WBC RBC Hgb Hct POC Hct 57.0 H MCV MCH MCHC RDW Plt Count MPV Immature Gran % (Auto) Neut % (Auto) Lymph % (Auto) [place] % (Auto) Eos % (Auto) Baso % (Auto) Lymph # (Auto) [place] # (Auto) Eos # (Auto) Baso # (Auto) Immature Gran # Absolute Neutrophils POC VBG pH 7.02 L* POC VBG pCO2 at Temp 24.0 L POC VBG pO2 32 POC VBG HCO3 6.2 L* POC VBG Total CO2 7.0 L POC Venous O2 Sat 38.0 L POC VBG Base Excess -25.0 L VBG Lactic Acid 2.1 H POC Sodium 136 Sodium POC Potassium 5.4 H Potassium POC Chloride 113 H Chloride Carbon Dioxide POC Total CO2 9.0 L* Anion Gap POC BUN 21 H BUN Creatinine POC Creatinine 0.8 GFR Calculation Glucose POC Glucose 195 H Osmolality Calcium POC WB Ioniz Calcium 1.30 Magnesium Total Bilirubin AST ALT Alkaline Phosphatase Ammonia Total Protein Albumin Globulin Albumin/Globulin Ratio Beta-Hydroxybutyrate Salicylates Acetaminophen Ethyl Alcohol mg/dL Ethyl Alcohol g/dL POC Troponin I < 0.02 02/25/22 02/25/22 02/25/22 13:25 13:24 13:24 WBC RBC Hgb Hct POC Hct MCV MCH MCHC RDW Plt Count MPV Immature Gran % (Auto) Neut % (Auto) Lymph % (Auto) [place] % (Auto) Eos % (Auto) Baso % (Auto) Lymph # (Auto) [place] # (Auto) Eos # (Auto) Baso # (Auto) Immature Gran # Absolute Neutrophils POC VBG pH POC VBG pCO2 at Temp POC VBG pO2 POC VBG HCO3 POC VBG Total CO2 POC Venous O2 Sat POC VBG Base Excess VBG Lactic Acid POC Sodium Sodium 134 POC Potassium Potassium 5.7 H POC Chloride Chloride 98 Carbon Dioxide 4 L* POC Total CO2 Anion Gap 32.0 H POC BUN BUN 18 Creatinine 1.2 H POC Creatinine GFR Calculation 52 Glucose 197 H POC Glucose Osmolality 311 H Calcium 10.1 POC WB Ioniz Calcium Magnesium 2.6 H Total Bilirubin 0.2 AST 52 H ALT 71 H Alkaline Phosphatase 130 H Ammonia Total Protein 8.0 Albumin 5.3 H Globulin 2.7 Albumin/Globulin Ratio 2.0 Beta-Hydroxybutyrate 7.92 H Salicylates < 0.3 Acetaminophen Ethyl Alcohol mg/dL Ethyl Alcohol g/dL POC Troponin I 02/25/22 02/25/22 02/25/22 13:24 13:24 13:24 WBC 10.6 RBC 5.82 H Hgb 17.6 H Hct 54.5 H POC Hct MCV 93.6 MCH 30.2 MCHC 32.3 RDW 12.3 Plt Count 289 MPV 10.4 Immature Gran % (Auto) 2.5 H Neut % (Auto) 83.8 H Lymph % (Auto) 10.4 L [place] % (Auto) 3.0 Eos % (Auto) 0 Baso % (Auto) 0.3 Lymph # (Auto) 1.10 L [place] # (Auto) 0.32 Eos # (Auto) 0 Baso # (Auto) 0.03 Immature Gran # 0.27 H Absolute Neutrophils 8.89 H POC VBG pH POC VBG pCO2 at Temp POC VBG pO2 POC VBG HCO3 POC VBG Total CO2 POC Venous O2 Sat POC VBG Base Excess VBG Lactic Acid POC Sodium Sodium POC Potassium Potassium POC Chloride Chloride Carbon Dioxide POC Total CO2 Anion Gap POC BUN BUN Creatinine POC Creatinine GFR Calculation Glucose POC Glucose Osmolality Calcium POC WB Ioniz Calcium Magnesium Total Bilirubin AST ALT Alkaline Phosphatase Ammonia 21 Total Protein Albumin Globulin Albumin/Globulin Ratio Beta-Hydroxybutyrate Salicylates Acetaminophen < 5.0 Ethyl Alcohol mg/dL Ethyl Alcohol g/dL POC Troponin I 02/25/22 13:24 WBC RBC Hgb Hct POC Hct MCV MCH MCHC RDW Plt Count MPV Immature Gran % (Auto) Neut % (Auto) Lymph % (Auto) [place] % (Auto) Eos % (Auto) Baso % (Auto) Lymph # (Auto) [place] # (Auto) Eos # (Auto) Baso # (Auto) Immature Gran # Absolute Neutrophils POC VBG pH POC VBG pCO2 at Temp POC VBG pO2 POC VBG HCO3 POC VBG Total CO2 POC Venous O2 Sat POC VBG Base Excess VBG Lactic Acid POC Sodium Sodium POC Potassium Potassium POC Chloride Chloride Carbon Dioxide POC Total CO2 Anion Gap POC BUN BUN Creatinine POC Creatinine GFR Calculation Glucose POC Glucose Osmolality Calcium POC WB Ioniz Calcium Magnesium Total Bilirubin AST ALT Alkaline Phosphatase Ammonia Total Protein Albumin Globulin Albumin/Globulin Ratio Beta-Hydroxybutyrate Salicylates Acetaminophen Ethyl Alcohol mg/dL < 10.0 Ethyl Alcohol g/dL < 0.010 POC Troponin I A/P Narrative A/P Narrative: Assessment: 51-year-old female admitted for severe metabolic acidosis likely secondary to diabetic ketoacidosis secondary from recently started Jardiance. #Severe anion gap metabolic acidosis probably due to DKA #Probable euglycemic diabetic ketoacidosis secondary to Jardiance #Acute kidney injury, likely prerenal #Hyperkalemia #Mildly elevated LFTs #Type 2 diabetes mellitus #Restless leg syndrome #Anxiety Plan -Insulin infusion per DKA protocol. -D5 1/2 NS IV fluid, D50 IV prn to avoid hypoglycemia. -VBG and IPP every 4 hours -Admission EKG. -Monitor renal function, urine output. -Hold home Jardiance, do not resume at discharge. -Home medication reconciliation. -Consistent carbohydrate diet. -DVT prophylaxis: Lovenox -CODE STATUS: Full -Disposition: Home when stable. Do not resume Jardiance. Time Spent With Patient Time: Total time spent is greater than 50% in coordination of care (as documented) at patient's floor/unit and/or counseling patient:
[2022-02-25 17:22] LABS: Amphetamine Screen,Urine None detected; Barbiturate Screen,Urine None detected; Benzodiazepines Screen,Urine None detected; Cannabinoid Screen,Urine Suspect Positive; Cocaine Screen,Urine None detected; Opiate Screen,Urine None detected; Oxycodone, Urine Screen None detected; Phencyclidine Screen,Urine None detected
[2022-02-25] MEDS ORDERED: ACETAMINOPHEN 325 MG TABLET PO PRN (17:24)
[2022-02-25] MEDS ORDERED: DEXTROSE 50% 50 ML VIAL IV PRN ×2 (17:24)
[2022-02-25] MEDS ORDERED: MAGNESIUM SULFATE 2 GM/50 ML BAG IV PRN (17:24)
[2022-02-25] MEDS ORDERED: ONDANSETRON 4 MG/2 ML VIAL IV PRN (17:24)
[2022-02-25] MEDS: DEXTROSE 5%-1/2NS 1,000 ML IV SCH ×2 (17:36→22:00)
[2022-02-25 18:22] LABS: ABG Methemoglobin 0.3 % (0.4-1.5); Total Hemoglobin 17.2 gm/Dl (12.0-15.0); VBG Base Excess -18 (-2-3); VBG Oxygen Saturation 68.9 % (40.0-70.0); VBG PCO2 31.2 mmHg (41.0-51.0); VBG PH 7.12 U (7.32-7.42); VBG PO2 36.9 mmHg (25.0-40.0); VBG Total CO2 10.9 mmol/L (25.0-29.0)
[2022-02-25 19:15] LABS: ALT/SGPT 53 U/L (<40); AST/SGOT 34 U/L (<32); Albumin 4.2 gm/dL (3.2-5.2); Albumin/Globulin Ratio 1.6 (1.0-2.3); Alkaline Phosphatase 97 U/L (39-117); Bilirubin,Direct < 0.2 mg/dL (0-0.3); Bilirubin,Total 0.3 mg/dL (0.1-1.0); Blood Urea Nitrogen 14 mg/dL (6-20); Calcium 8.8 mg/dL (8.6-10.4); Carbon Dioxide 9 mmol/L (22-30); Chloride 105 mmol/L (96-108); Globulin 2.6 gm/dL (2.2-3.7); Glomerular Filtration Rate 74; Glucose 137 mg/dL (70-105); Lactate Dehydrogenase 146 U/L (135-225); Phosphorous 1.8 mg/dL (2.5-4.5); Triglycerides 142 mg/dL (<150)
[2022-02-25] MEDS ORDERED: POTASSIUM PHOSPHATE 20 MEQ in DEXTROSE 5% IN WATER 250 ML IV ONE (19:47)
[2022-02-25 20:41] LABS: Appearance,Urine CLEAR (Clear); Bilirubin,Urine Negative (Negative); Color,Urine LT. YELLOW; Culture Indicated,Urine No; Glucose,Urine (UA) >=1000 mg/dL (Negative); Ketones,Urine >=80 mg/dL (Negative); Leukocyte Esterase,Urine NEGATIVE /uL (Negative); Mucus,Urine FEW /hpf; Nitrate,Urine NEGATIVE (Negative); Other Casts,Urine FEW /lph; Protein,Urine TRACE mg/dL (Negative); Urine Blood TRACE-LYSED ery/mcL (Negative); Urine Granular Cast 5 /lph (0-0); Urine Hyaline Cast 48 /lph (0-2); Urine RBC 0 /hpf (0-3); Urine Squamous Epithelial Cell 1 /hpf (0-4); Urine WBC 2 /hpf (0-4); Urobilinogen,Urine Normal
[2022-02-25] MEDS ORDERED: POTASSIUM PHOSPHATE 66 MEQ/15 ML VIAL IV ONE (21:12)
--- NOTE | 2022-02-25 21:55 | EKG ---
[facility] Test Date: 2022-02-25 Pat Name: Dea Newman Department: ED Room: Gender: Female Compounder Helper: HS : [id number] Requested By: Ezekiel Morris Order Number: [id number] Reading MD: Lakhwinder Naidu Measurements Intervals [place] Rate: 89 P: 48 MD: 132 QRS: 47 QRSD: 86 T: 20 QT: 334 QTc: 407 Interpretive Statements Sinus rhythm Probable left atrial enlargement Borderline T wave abnormalities Baseline wander in lead(s) V5,V6 Electronically Signed On 02-25-2022 21:54:43 PST by Lakhwinder Naidu /store/M0/[id number]
[2022-02-25 22:15] LABS: ABG Methemoglobin 0.3 % (0.4-1.5); Total Hemoglobin 15.5 gm/Dl (12.0-15.0); VBG Base Excess -15 (-2-3); VBG HCO3 12.6 mmol/L (24.0-28.0); VBG Oxygen Saturation 75.2 % (40.0-70.0); VBG PH 7.17 U (7.32-7.42); VBG PO2 41.5 mmHg (25.0-40.0); VBG Total CO2 13.6 mmol/L (25.0-29.0)
[2022-02-25 22:41] LABS: ALT/SGPT 44 U/L (<40); AST/SGOT 28 U/L (<32); Albumin 3.7 gm/dL (3.2-5.2); Albumin/Globulin Ratio 1.6 (1.0-2.3); Alkaline Phosphatase 79 U/L (39-117); Bilirubin,Direct < 0.2 mg/dL (0-0.3); Bilirubin,Total 0.3 mg/dL (0.1-1.0); Blood Urea Nitrogen 13 mg/dL (6-20); Calcium 8.4 mg/dL (8.6-10.4); Carbon Dioxide 11 mmol/L (22-30); Chloride 108 mmol/L (96-108); Globulin 2.3 gm/dL (2.2-3.7); Glomerular Filtration Rate 101; Glucose 127 mg/dL (70-105); Lactate Dehydrogenase 194 U/L (135-225); Phosphorous 1.4 mg/dL (2.5-4.5); Triglycerides 149 mg/dL (<150); Uric Acid 8.8 mg/dL (2.5-8.0)
[2022-02-25] MEDS: 0.9 % SODIUM CHLORIDE 10 ML SYRINGE IV SCH (23:04)
[2022-02-26 01:57] LABS: ABG Methemoglobin 0.4 % (0.4-1.5); Total Hemoglobin 14.8 gm/Dl (12.0-15.0); VBG Base Excess -10 (-2-3); VBG HCO3 15.8 mmol/L (24.0-28.0); VBG Oxygen Saturation 82.2 % (40.0-70.0); VBG PCO2 35.6 mmHg (41.0-51.0); VBG PH 7.27 U (7.32-7.42); VBG PO2 46.3 mmHg (25.0-40.0); VBG Total CO2 16.9 mmol/L (25.0-29.0)
[2022-02-26 02:41] LABS: ALT/SGPT 40 U/L (<40); AST/SGOT 24 U/L (<32); Albumin 3.5 gm/dL (3.2-5.2); Albumin/Globulin Ratio 1.6 (1.0-2.3); Alkaline Phosphatase 76 U/L (39-117); Bilirubin,Direct < 0.2 mg/dL (0-0.3); Bilirubin,Total 0.3 mg/dL (0.1-1.0); Blood Urea Nitrogen 10 mg/dL (6-20); Calcium 8.2 mg/dL (8.6-10.4); Carbon Dioxide 14 mmol/L (22-30); Chloride 107 mmol/L (96-108); Globulin 2.2 gm/dL (2.2-3.7); Glomerular Filtration Rate 101; Glucose 160 mg/dL (70-105); Lactate Dehydrogenase 129 U/L (135-225); Phosphorous 1.3 mg/dL (2.5-4.5); Triglycerides 146 mg/dL (<150); Uric Acid 7.4 mg/dL (2.5-8.0)
[2022-02-26] MEDS: DEXTROSE 5%-1/2NS 1,000 ML IV SCH (02:58)
[2022-02-26] MEDS ORDERED: POTASSIUM PHOSPHATE 40 MEQ in DEXTROSE 5% IN WATER 500 ML IV ONE (05:10)
[2022-02-26] MEDS: 0.9 % SODIUM CHLORIDE 10 ML SYRINGE IV SCH ×2 (05:51→06:10)
[2022-02-26 06:07] LABS: ABG Methemoglobin 0.2 % (0.4-1.5); Total Hemoglobin 14.2 gm/Dl (12.0-15.0); VBG Base Excess -10 (-2-3); VBG HCO3 15.9 mmol/L (24.0-28.0); VBG Oxygen Saturation 91.8 % (40.0-70.0); VBG PCO2 33.2 mmHg (41.0-51.0); VBG PO2 96.3 mmHg (25.0-40.0); VBG Total CO2 16.9 mmol/L (25.0-29.0)
[2022-02-26 06:26] LABS: Hematocrit 39.1 % (34.1-44.9); Hemoglobin 12.9 g/dL (11.2-15.7); Mean Cell Volume 90.7 fL (80.0-100.0); Mean Platelet Volume 9.9 fL (8.8-12.5); Platelet Count 170 K/mcL (140-440); RBC 4.31 M/mcL (3.59-5.38); Red Cell Distribution Width 12.3 % (11.5-14.5); WBC 5.2 K/mcL (4.5-11.0)
[2022-02-26 06:34] LABS: ALT/SGPT 49 U/L (<40); AST/SGOT 51 U/L (<32); Albumin 3.5 gm/dL (3.2-5.2); Albumin/Globulin Ratio 1.8 (1.0-2.3); Alkaline Phosphatase 72 U/L (39-117); Bilirubin,Direct < 0.2 mg/dL (0-0.3); Bilirubin,Total 0.3 mg/dL (0.1-1.0); Blood Urea Nitrogen 9 mg/dL (6-20); Calcium 8.2 mg/dL (8.6-10.4); Carbon Dioxide 14 mmol/L (22-30); Chloride 110 mmol/L (96-108); Globulin 1.9 gm/dL (2.2-3.7); Glomerular Filtration Rate 101; Glucose 151 mg/dL (70-105); Lactate Dehydrogenase 143 U/L (135-225); Triglycerides 132 mg/dL (<150); Uric Acid 6.4 mg/dL (2.5-8.0)
[2022-02-26] MEDS ORDERED: DEXTROSE 50% 50 ML VIAL IV PRN (06:46)
[2022-02-26] MEDS ORDERED: DEXTROSE 31 GM ORAL.SUSP PO PRN (06:46)
[2022-02-26] MEDS ORDERED: POTASSIUM CHLORIDE 20 MEQ TABLET PO ONE (06:49)
[2022-02-26] MEDS: INSULIN LISPRO 1 UNIT/0.01 ML UNIT SQ SCH ×2 (07:52→11:38)
[2022-02-26] MEDS ORDERED: ENOXAPARIN 40 MG/0.4 ML SYRINGE SQ SCH (09:00)
--- NOTE | 2022-02-26 09:30 | Discharge Summary ---
Discharge Provider Provider IMPORTANT FOLLOW-UP INFORMATION FOR PCP: Patient information: Note initiated : 02/26/22 at 9:27 am Service Date, if different from initiated Date: [] Patient: Dea Newman 51 y/o F admitted on 02/25/22 for Weakness. Chief Complaint: [] Date of admission: 02/25/22 17:15 Discharge date: 02/26/22 Primary care physician: Alvin Gomes PA-C Consults: 02/25/22 14:32 Consult to Physician [CONS] Stat Comment: Consulting Provider: Jose David Weeks Reason For Exam: Physician to Consult COURSE Hospital Course Hospital course: Ms. Newman is a 51 year old female with a history of type 2 diabetes mellitus, restless legs, depression who presented to the patient with generalized weakness, disorientation and generally feeling ill. In the emergency department, the patient was found to have a severe metabolic acidosis with an anion gap and elevated ketones. Alcohol level, aspirin level, Tylenol level were normal. There is no evidence of an infectious process, troponin was normal. The patient recently started Jardiance and that is thought to be the cause of diabetic ketoacidosis. The patient's glucose level was 195 in the ED therefore this is probably euglycemic diabetic ketoacidosis secondary to Jardiance. Work-up was also notable for an elevated hemoglobin, likely hemoconcentration and elevated creatinine likely reflecting a prerenal acute kidney injury. Lactic acid was mildly elevated at 2.1, LFTs were also mildly elevated. Potassium was mildly elevated at 5.4. The patient was started on an insulin infusion and D5 IV. Hospital medicine was consulted for admission. 02/26 Acidosis resolving quickly, anion gap normal. Replace phosphorus and potassium. Discontinue insulin infusion and IV fluid and transition to correction Humalog sliding scale. Plan to discharge home this afternoon. Will not resume Farxiga at discharge, otherwise we will continue with the patient's prior home medications. Added Farxiga to patient's allergies as a severe adverse reaction. Follow-up with primary care provider, for this patient, I recommend avoiding SGLT2 inhibitors in the future. Physical exam Head: Atraumatic, normal inspection. Eyes: normal appearance, no scleral icterus. Neck: full ROM Respiratory: no respiratory distress. Cardiovascular: Regular tachycardia, S1, S2. GI/Abdominal: Mild epigastric tenderness, soft, nontender, no guarding. Extremities: full range of motion, nontender. Neurological: CN II-XII intact, intact motor, intact sensation. Psychiatric: normal mood. Skin: warm, normal color Discharge diagnosis: Euglycemic diabetic ketoacidosis Time Spent with Patient Time attestation: Total time spent providing and/or coordinating discharge services: Time spent: Less than 30 minutes EXAM Constitutional Vitals: Temp Pulse Resp BP Pulse Ox O2 Del Method 98.2 F 76 12 119/60 100 02/26/22 08:00 02/26/22 09:00 02/26/22 09:00 02/26/22 09:00 02/26/22 09:00 02/26/22 08:50 Discharge Data Data Completed and Pending Labs on day of discharge: Labs from last 24 hours 02/26/22 02/26/22 02/26/22 05:41 05:41 05:41 WBC 5.2 RBC 4.31 Hgb 12.9 Hct 39.1 POC Hct MCV 90.7 MCH 29.9 MCHC 33.0 RDW 12.3 Plt Count 170 MPV 9.9 Immature Gran % (Auto) Neut % (Auto) Lymph % (Auto) [place] % (Auto) Eos % (Auto) Baso % (Auto) Lymph # (Auto) [place] # (Auto) Eos # (Auto) Baso # (Auto) Immature Gran # Absolute Neutrophils Platelet Estimate Pending RBC Morphology Pending ABG Methemoglobin 0.2 L VBG pH 7.30 L POC VBG pH VBG pCO2 33.2 L POC VBG pCO2 at Temp VBG pO2 96.3 H POC VBG pO2 VBG HCO3 15.9 L POC VBG HCO3 VBG Total CO2 16.9 L POC VBG Total CO2 VBG O2 Saturation 91.8 H POC Venous O2 Sat VBG Base Excess -10 L POC VBG Base Excess VBG Lactic Acid Carboxyhemoglobin 5.6 H Total Hemoglobin 14.2 POC Sodium Sodium 136 POC Potassium Potassium 3.2 L POC Chloride Chloride 110 H Carbon Dioxide 14 L POC Total CO2 Anion Gap 12.0 POC BUN BUN 9 Creatinine 0.7 POC Creatinine GFR Calculation 101 Glucose 151 H POC Glucose Osmolality Uric Acid 6.4 Calcium 8.2 L POC WB Ioniz Calcium Phosphorus 1.0 L Magnesium 2.0 Total Bilirubin 0.3 Direct Bilirubin < 0.2 GGT 24 AST 51 H ALT 49 H Alkaline Phosphatase 72 Ammonia Lactate Dehydrogenase 143 Total Protein 5.4 L Albumin 3.5 Globulin 1.9 L Albumin/Globulin Ratio 1.8 Triglycerides 132 Lipase Beta-Hydroxybutyrate Urine Color Urine Appearance Urine pH Ur Specific [place] Urine Protein Urine Glucose (UA) Urine Ketones Urine Occult Blood Urine Nitrate Urine Bilirubin Urine Urobilinogen Ur Leukocyte Esterase Urine RBC Urine WBC Ur Squamous Epith Cells Urine Bacteria Hyaline Casts Granular Casts Other Casts Urine Mucus Ur Culture Indicated? Salicylates Urine Opiates Screen Ur Opiates Confirm Ur Oxycodone Screen U Oxycod/Oxymor Confirm Urine Methadone Screen Ur Methadone Confirm Acetaminophen Ur Barbiturates Screen Ur Barbiturate Confirm Ur Phencyclidine Scrn Urine PCP Confirm Ur Amphetamines Screen U Amphetamines Confirm U Benzodiazepines Scrn Ur Benzodiazepine, Qnt Urine Cocaine Screen Urine Cocaine Confirm U Cannabinoids Confirm U Marijuana (THC) Screen Ethyl Alcohol mg/dL Ethyl Alcohol g/dL POC Troponin I 02/26/22 02/26/22 02/25/22 01:36 01:36 21:53 WBC RBC Hgb Hct POC Hct MCV MCH MCHC RDW Plt Count MPV Immature Gran % (Auto) Neut % (Auto) Lymph % (Auto) [place] % (Auto) Eos % (Auto) Baso % (Auto) Lymph # (Auto) [place] # (Auto) Eos # (Auto) Baso # (Auto) Immature Gran # Absolute Neutrophils Platelet Estimate RBC Morphology ABG Methemoglobin 0.4 0.3 L VBG pH 7.27 L 7.17 L* POC VBG pH VBG pCO2 35.6 L 35.0 L POC VBG pCO2 at Temp VBG pO2 46.3 H 41.5 H POC VBG pO2 VBG HCO3 15.8 L 12.6 L POC VBG HCO3 VBG Total CO2 16.9 L 13.6 L POC VBG Total CO2 VBG O2 Saturation 82.2 H 75.2 H POC Venous O2 Sat VBG Base Excess -10 L -15 L POC VBG Base Excess VBG Lactic Acid Carboxyhemoglobin 4.2 H 5.0 H Total Hemoglobin 14.8 15.5 H POC Sodium Sodium 134 POC Potassium Potassium 3.5 POC Chloride Chloride 107 Carbon Dioxide 14 L POC Total CO2 Anion Gap 13.0 POC BUN BUN 10 Creatinine 0.7 POC Creatinine GFR Calculation 101 Glucose 160 H POC Glucose Osmolality Uric Acid 7.4 Calcium 8.2 L POC WB Ioniz Calcium Phosphorus 1.3 L Magnesium 2.0 Total Bilirubin 0.3 Direct Bilirubin < 0.2 GGT 25 AST 24 ALT 40 H Alkaline Phosphatase 76 Ammonia Lactate Dehydrogenase 129 L Total Protein 5.7 L Albumin 3.5 Globulin 2.2 Albumin/Globulin Ratio 1.6 Triglycerides 146 Lipase Beta-Hydroxybutyrate Urine Color Urine Appearance Urine pH Ur Specific [place] Urine Protein Urine Glucose (UA) Urine Ketones Urine Occult Blood Urine Nitrate Urine Bilirubin Urine Urobilinogen Ur Leukocyte Esterase Urine RBC Urine WBC Ur Squamous Epith Cells Urine Bacteria Hyaline Casts Granular Casts Other Casts Urine Mucus Ur Culture Indicated? Salicylates Urine Opiates Screen Ur Opiates Confirm Ur Oxycodone Screen U Oxycod/Oxymor Confirm Urine Methadone Screen Ur Methadone Confirm Acetaminophen Ur Barbiturates Screen Ur Barbiturate Confirm Ur Phencyclidine Scrn Urine PCP Confirm Ur Amphetamines Screen U Amphetamines Confirm U Benzodiazepines Scrn Ur Benzodiazepine, Qnt Urine Cocaine Screen Urine Cocaine Confirm U Cannabinoids Confirm U Marijuana (THC) Screen Ethyl Alcohol mg/dL Ethyl Alcohol g/dL POC Troponin I 02/25/22 02/25/22 02/25/22 21:53 19:45 17:58 WBC RBC Hgb Hct POC Hct MCV MCH MCHC RDW Plt Count MPV Immature Gran % (Auto) Neut % (Auto) Lymph % (Auto) [place] % (Auto) Eos % (Auto) Baso % (Auto) Lymph # (Auto) [place] # (Auto) Eos # (Auto) Baso # (Auto) Immature Gran # Absolute Neutrophils Platelet Estimate RBC Morphology ABG Methemoglobin 0.3 L VBG pH 7.12 L* POC VBG pH VBG pCO2 31.2 L POC VBG pCO2 at Temp VBG pO2 36.9 POC VBG pO2 VBG HCO3 10.0 L* POC VBG HCO3 VBG Total CO2 10.9 L* POC VBG Total CO2 VBG O2 Saturation 68.9 POC Venous O2 Sat VBG Base Excess -18 L POC VBG Base Excess VBG Lactic Acid Carboxyhemoglobin 3.1 H Total Hemoglobin 17.2 H POC Sodium Sodium 135 POC Potassium Potassium 4.0 POC Chloride Chloride 108 Carbon Dioxide 11 L POC Total CO2 Anion Gap 16.0 POC BUN BUN 13 Creatinine 0.7 POC Creatinine GFR Calculation 101 Glucose 127 H POC Glucose Osmolality Uric Acid 8.8 H Calcium 8.4 L POC WB Ioniz Calcium Phosphorus 1.4 L Magnesium 2.1 Total Bilirubin 0.3 Direct Bilirubin < 0.2 GGT 26 AST 28 ALT 44 H Alkaline Phosphatase 79 Ammonia Lactate Dehydrogenase 194 Total Protein 6.0 Albumin 3.7 Globulin 2.3 Albumin/Globulin Ratio 1.6 Triglycerides 149 Lipase Beta-Hydroxybutyrate Urine Color Lt. yellow Urine Appearance Clear Urine pH 6.0 Ur Specific [place] 1.020 Urine Protein Trace A Urine Glucose (UA) >=1000 A Urine Ketones >=80 A Urine Occult Blood Trace-lysed A Urine Nitrate Negative Urine Bilirubin Negative Urine Urobilinogen Normal Ur Leukocyte Esterase Negative Urine RBC 0 Urine WBC 2 Ur Squamous Epith Cells 1 Urine Bacteria None Hyaline Casts 48 H Granular Casts 5 H Other Casts Few A Urine Mucus Few A Ur Culture Indicated? No Salicylates Urine Opiates Screen Ur Opiates Confirm Ur Oxycodone Screen U Oxycod/Oxymor Confirm Urine Methadone Screen Ur Methadone Confirm Acetaminophen Ur Barbiturates Screen Ur Barbiturate Confirm Ur Phencyclidine Scrn Urine PCP Confirm Ur Amphetamines Screen U Amphetamines Confirm U Benzodiazepines Scrn Ur Benzodiazepine, Qnt Urine Cocaine Screen Urine Cocaine Confirm U Cannabinoids Confirm U Marijuana (THC) Screen Ethyl Alcohol mg/dL Ethyl Alcohol g/dL POC Troponin I 02/25/22 02/25/22 02/25/22 17:58 17:09 15:53 WBC RBC Hgb Hct POC Hct MCV MCH MCHC RDW Plt Count MPV Immature Gran % (Auto) Neut % (Auto) Lymph % (Auto) [place] % (Auto) Eos % (Auto) Baso % (Auto) Lymph # (Auto) [place] # (Auto) Eos # (Auto) Baso # (Auto) Immature Gran # Absolute Neutrophils Platelet Estimate RBC Morphology ABG Methemoglobin VBG pH POC VBG pH VBG pCO2 POC VBG pCO2 at Temp VBG pO2 POC VBG pO2 VBG HCO3 POC VBG HCO3 VBG Total CO2 POC VBG Total CO2 VBG O2 Saturation POC Venous O2 Sat VBG Base Excess POC VBG Base Excess VBG Lactic Acid 2.2 H Carboxyhemoglobin Total Hemoglobin POC Sodium Sodium 135 POC Potassium Potassium 3.9 POC Chloride Chloride 105 Carbon Dioxide 9 L* POC Total CO2 Anion Gap 21.0 H POC BUN BUN 14 Creatinine 0.9 POC Creatinine GFR Calculation 74 Glucose 137 H POC Glucose Osmolality Uric Acid 10.0 H Calcium 8.8 POC WB Ioniz Calcium Phosphorus 1.8 L Magnesium 2.1 Total Bilirubin 0.3 Direct Bilirubin < 0.2 GGT 31 AST 34 H ALT 53 H Alkaline Phosphatase 97 Ammonia Lactate Dehydrogenase 146 Total Protein 6.8 Albumin 4.2 Globulin 2.6 Albumin/Globulin Ratio 1.6 Triglycerides 142 Lipase 43 Beta-Hydroxybutyrate Urine Color Urine Appearance Urine pH Ur Specific [place] Urine Protein Urine Glucose (UA) Urine Ketones Urine Occult Blood Urine Nitrate Urine Bilirubin Urine Urobilinogen Ur Leukocyte Esterase Urine RBC Urine WBC Ur Squamous Epith Cells Urine Bacteria Hyaline Casts Granular Casts Other Casts Urine Mucus Ur Culture Indicated? Salicylates Urine Opiates Screen None detected Ur Opiates Confirm TNP Ur Oxycodone Screen None detected U Oxycod/Oxymor Confirm TNP Urine Methadone Screen None detected Ur Methadone Confirm TNP Acetaminophen Ur Barbiturates Screen None detected Ur Barbiturate Confirm TNP Ur Phencyclidine Scrn None detected Urine PCP Confirm TNP Ur Amphetamines Screen None detected U Amphetamines Confirm TNP U Benzodiazepines Scrn None detected Ur Benzodiazepine, Qnt TNP Urine Cocaine Screen None detected Urine Cocaine Confirm TNP U Cannabinoids Confirm Pending U Marijuana (THC) Screen Suspect positive A Ethyl Alcohol mg/dL Ethyl Alcohol g/dL POC Troponin I 02/25/22 02/25/22 02/25/22 13:36 13:34 13:31 WBC RBC Hgb Hct POC Hct 57.0 H MCV MCH MCHC RDW Plt Count MPV Immature Gran % (Auto) Neut % (Auto) Lymph % (Auto) [place] % (Auto) Eos % (Auto) Baso % (Auto) Lymph # (Auto) [place] # (Auto) Eos # (Auto) Baso # (Auto) Immature Gran # Absolute Neutrophils Platelet Estimate RBC Morphology ABG Methemoglobin VBG pH POC VBG pH 7.02 L* VBG pCO2 POC VBG pCO2 at Temp 24.0 L VBG pO2 POC VBG pO2 32 VBG HCO3 POC VBG HCO3 6.2 L* VBG Total CO2 POC VBG Total CO2 7.0 L VBG O2 Saturation POC Venous O2 Sat 38.0 L VBG Base Excess POC VBG Base Excess -25.0 L VBG Lactic Acid 2.1 H Carboxyhemoglobin Total Hemoglobin POC Sodium 136 Sodium POC Potassium 5.4 H Potassium POC Chloride 113 H Chloride Carbon Dioxide POC Total CO2 9.0 L* Anion Gap POC BUN 21 H BUN Creatinine POC Creatinine 0.8 GFR Calculation Glucose POC Glucose 195 H Osmolality Uric Acid Calcium POC WB Ioniz Calcium 1.30 Phosphorus Magnesium Total Bilirubin Direct Bilirubin GGT AST ALT Alkaline Phosphatase Ammonia Lactate Dehydrogenase Total Protein Albumin Globulin Albumin/Globulin Ratio Triglycerides Lipase Beta-Hydroxybutyrate Urine Color Urine Appearance Urine pH Ur Specific [place] Urine Protein Urine Glucose (UA) Urine Ketones Urine Occult Blood Urine Nitrate Urine Bilirubin Urine Urobilinogen Ur Leukocyte Esterase Urine RBC Urine WBC Ur Squamous Epith Cells Urine Bacteria Hyaline Casts Granular Casts Other Casts Urine Mucus Ur Culture Indicated? Salicylates Urine Opiates Screen Ur Opiates Confirm Ur Oxycodone Screen U Oxycod/Oxymor Confirm Urine Methadone Screen Ur Methadone Confirm Acetaminophen Ur Barbiturates Screen Ur Barbiturate Confirm Ur Phencyclidine Scrn Urine PCP Confirm Ur Amphetamines Screen U Amphetamines Confirm U Benzodiazepines Scrn Ur Benzodiazepine, Qnt Urine Cocaine Screen Urine Cocaine Confirm U Cannabinoids Confirm U Marijuana (THC) Screen Ethyl Alcohol mg/dL Ethyl Alcohol g/dL POC Troponin I < 0.02 02/25/22 02/25/22 02/25/22 13:25 13:24 13:24 WBC RBC Hgb Hct POC Hct MCV MCH MCHC RDW Plt Count MPV Immature Gran % (Auto) Neut % (Auto) Lymph % (Auto) [place] % (Auto) Eos % (Auto) Baso % (Auto) Lymph # (Auto) [place] # (Auto) Eos # (Auto) Baso # (Auto) Immature Gran # Absolute Neutrophils Platelet Estimate RBC Morphology ABG Methemoglobin VBG pH POC VBG pH VBG pCO2 POC VBG pCO2 at Temp VBG pO2 POC VBG pO2 VBG HCO3 POC VBG HCO3 VBG Total CO2 POC VBG Total CO2 VBG O2 Saturation POC Venous O2 Sat VBG Base Excess POC VBG Base Excess VBG Lactic Acid Carboxyhemoglobin Total Hemoglobin POC Sodium Sodium 134 POC Potassium Potassium 5.7 H POC Chloride Chloride 98 Carbon Dioxide 4 L* POC Total CO2 Anion Gap 32.0 H POC BUN BUN 18 Creatinine 1.2 H POC Creatinine GFR Calculation 52 Glucose 197 H POC Glucose Osmolality 311 H Uric Acid Calcium 10.1 POC WB Ioniz Calcium Phosphorus Magnesium 2.6 H Total Bilirubin 0.2 Direct Bilirubin GGT AST 52 H ALT 71 H Alkaline Phosphatase 130 H Ammonia Lactate Dehydrogenase Total Protein 8.0 Albumin 5.3 H Globulin 2.7 Albumin/Globulin Ratio 2.0 Triglycerides Lipase Beta-Hydroxybutyrate 7.92 H Urine Color Urine Appearance Urine pH Ur Specific [place] Urine Protein Urine Glucose (UA) Urine Ketones Urine Occult Blood Urine Nitrate Urine Bilirubin Urine Urobilinogen Ur Leukocyte Esterase Urine RBC Urine WBC Ur Squamous Epith Cells Urine Bacteria Hyaline Casts Granular Casts Other Casts Urine Mucus Ur Culture Indicated? Salicylates < 0.3 Urine Opiates Screen Ur Opiates Confirm Ur Oxycodone Screen U Oxycod/Oxymor Confirm Urine Methadone Screen Ur Methadone Confirm Acetaminophen Ur Barbiturates Screen Ur Barbiturate Confirm Ur Phencyclidine Scrn Urine PCP Confirm Ur Amphetamines Screen U Amphetamines Confirm U Benzodiazepines Scrn Ur Benzodiazepine, Qnt Urine Cocaine Screen Urine Cocaine Confirm U Cannabinoids Confirm U Marijuana (THC) Screen Ethyl Alcohol mg/dL Ethyl Alcohol g/dL POC Troponin I 02/25/22 02/25/22 02/25/22 13:24 13:24 13:24 WBC 10.6 RBC 5.82 H Hgb 17.6 H Hct 54.5 H POC Hct MCV 93.6 MCH 30.2 MCHC 32.3 RDW 12.3 Plt Count 289 MPV 10.4 Immature Gran % (Auto) 2.5 H Neut % (Auto) 83.8 H Lymph % (Auto) 10.4 L [place] % (Auto) 3.0 Eos % (Auto) 0 Baso % (Auto) 0.3 Lymph # (Auto) 1.10 L [place] # (Auto) 0.32 Eos # (Auto) 0 Baso # (Auto) 0.03 Immature Gran # 0.27 H Absolute Neutrophils 8.89 H Platelet Estimate RBC Morphology ABG Methemoglobin VBG pH POC VBG pH VBG pCO2 POC VBG pCO2 at Temp VBG pO2 POC VBG pO2 VBG HCO3 POC VBG HCO3 VBG Total CO2 POC VBG Total CO2 VBG O2 Saturation POC Venous O2 Sat VBG Base Excess POC VBG Base Excess VBG Lactic Acid Carboxyhemoglobin Total Hemoglobin POC Sodium Sodium POC Potassium Potassium POC Chloride Chloride Carbon Dioxide POC Total CO2 Anion Gap POC BUN BUN Creatinine POC Creatinine GFR Calculation Glucose POC Glucose Osmolality Uric Acid Calcium POC WB Ioniz Calcium Phosphorus Magnesium Total Bilirubin Direct Bilirubin GGT AST ALT Alkaline Phosphatase Ammonia 21 Lactate Dehydrogenase Total Protein Albumin Globulin Albumin/Globulin Ratio Triglycerides Lipase Beta-Hydroxybutyrate Urine Color Urine Appearance Urine pH Ur Specific [place] Urine Protein Urine Glucose (UA) Urine Ketones Urine Occult Blood Urine Nitrate Urine Bilirubin Urine Urobilinogen Ur Leukocyte Esterase Urine RBC Urine WBC Ur Squamous Epith Cells Urine Bacteria Hyaline Casts Granular Casts Other Casts Urine Mucus Ur Culture Indicated? Salicylates Urine Opiates Screen Ur Opiates Confirm Ur Oxycodone Screen U Oxycod/Oxymor Confirm Urine Methadone Screen Ur Methadone Confirm Acetaminophen < 5.0 Ur Barbiturates Screen Ur Barbiturate Confirm Ur Phencyclidine Scrn Urine PCP Confirm Ur Amphetamines Screen U Amphetamines Confirm U Benzodiazepines Scrn Ur Benzodiazepine, Qnt Urine Cocaine Screen Urine Cocaine Confirm U Cannabinoids Confirm U Marijuana (THC) Screen Ethyl Alcohol mg/dL Ethyl Alcohol g/dL POC Troponin I 02/25/22 13:24 WBC RBC Hgb Hct POC Hct MCV MCH MCHC RDW Plt Count MPV Immature Gran % (Auto) Neut % (Auto) Lymph % (Auto) [place] % (Auto) Eos % (Auto) Baso % (Auto) Lymph # (Auto) [place] # (Auto) Eos # (Auto) Baso # (Auto) Immature Gran # Absolute Neutrophils Platelet Estimate RBC Morphology ABG Methemoglobin VBG pH POC VBG pH VBG pCO2 POC VBG pCO2 at Temp VBG pO2 POC VBG pO2 VBG HCO3 POC VBG HCO3 VBG Total CO2 POC VBG Total CO2 VBG O2 Saturation POC Venous O2 Sat VBG Base Excess POC VBG Base Excess VBG Lactic Acid Carboxyhemoglobin Total Hemoglobin POC Sodium Sodium POC Potassium Potassium POC Chloride Chloride Carbon Dioxide POC Total CO2 Anion Gap POC BUN BUN Creatinine POC Creatinine GFR Calculation Glucose POC Glucose Osmolality Uric Acid Calcium POC WB Ioniz Calcium Phosphorus Magnesium Total Bilirubin Direct Bilirubin GGT AST ALT Alkaline Phosphatase Ammonia Lactate Dehydrogenase Total Protein Albumin Globulin Albumin/Globulin Ratio Triglycerides Lipase Beta-Hydroxybutyrate Urine Color Urine Appearance Urine pH Ur Specific [place] Urine Protein Urine Glucose (UA) Urine Ketones Urine Occult Blood Urine Nitrate Urine Bilirubin Urine Urobilinogen Ur Leukocyte Esterase Urine RBC Urine WBC Ur Squamous Epith Cells Urine Bacteria Hyaline Casts Granular Casts Other Casts Urine Mucus Ur Culture Indicated? Salicylates Urine Opiates Screen Ur Opiates Confirm Ur Oxycodone Screen U Oxycod/Oxymor Confirm Urine Methadone Screen Ur Methadone Confirm Acetaminophen Ur Barbiturates Screen Ur Barbiturate Confirm Ur Phencyclidine Scrn Urine PCP Confirm Ur Amphetamines Screen U Amphetamines Confirm U Benzodiazepines Scrn Ur Benzodiazepine, Qnt Urine Cocaine Screen Urine Cocaine Confirm U Cannabinoids Confirm U Marijuana (THC) Screen Ethyl Alcohol mg/dL < 10.0 Ethyl Alcohol g/dL < 0.010 POC Troponin I Discharge Plan Patient/Caregiver Discharge Instructions Activity: increase activity as tolerated Diet: Consistent Carbohydrate Prescriptions: Continued estradiol 1 mg tablet 1 mg PO QDAY Qty: 90 3RF venlafaxine 150 mg capsule,extended release 24hr 150 mg PO QDAY Qty: 90 3RF semaglutide 2 mg/dose (8 mg/3 mL) pen injector 2 mg subcut QWEEK Qty: 3 0RF Rx Instructions: Take on Saturday clonazepam 0.5 mg tablet 0.5 mg PO QDAY PRN (Reason: Anxiety) gabapentin 300 mg capsule 600 mg PO BID@ metformin 1,000 mg tablet 1,000 mg PO BIDCC Discontinued Farxiga 10 mg tablet 1 tab PO QDAY Follow Up Plan Follow up with: Alvin Gomes PA-C [Primary Care Provider] - Patient Disposition: Home, Self-Care Overall status at discharge: patient is progressing back to baseline Discharge Orders: Discharge Order (Routine); Ordered 02/26/22 Ordered By: Jose David Weeks
[2022-02-26 11:09] LABS: ALT/SGPT 74 U/L (<40); AST/SGOT 95 U/L (<32); Albumin 3.5 gm/dL (3.2-5.2); Albumin/Globulin Ratio 1.8 (1.0-2.3); Alkaline Phosphatase 86 U/L (39-117); Bilirubin,Direct < 0.2 mg/dL (0-0.3); Bilirubin,Total 0.4 mg/dL (0.1-1.0); Blood Urea Nitrogen 7 mg/dL (6-20); Calcium 8.1 mg/dL (8.6-10.4); Carbon Dioxide 15 mmol/L (22-30); Chloride 108 mmol/L (96-108); Globulin 1.9 gm/dL (2.2-3.7); Glomerular Filtration Rate 106; Glucose 162 mg/dL (70-105); Lactate Dehydrogenase 254 U/L (135-225); Phosphorous 2.8 mg/dL (2.5-4.5); Triglycerides 148 mg/dL (<150); Uric Acid 5.3 mg/dL (2.5-8.0)
[2022-02-26 11:34] LABS: Lymphocytes % 48 % (15-49); Monocytes % (Manual) 5 % (1-12); Platelet Estimate NORMAL (Normal); RBC Morphology NORMAL (Normal); Segmented Neutrophils % 47 % (38-78)
== END 2022-02-26 12:02 | disposition home or self-care (01) | DRG 638 ==
LOC: ED 12:58 → ICU 17:15
PROVIDERS: ADMIT Internal Medicine; ATTEND Internal Medicine